=== PATIENT | female | born 1970 | race Caucasian/White ===

== ENCOUNTER 2017-05-22 10:30 | Day surgery (SDC) | payer OTHER ==
[~2017-05-22] VITALS: Ht 157.5 cm; Wt 58.3 kg
[~2017-05-22 10:30] MED LIST: ALPR-475 PO; HYDR1TAB12 PO; LORA10TA75 PO; MAGN100T PO
[2017-05-22] MEDS ORDERED: LACTATED RINGERS 1,000 ML IV SCH (11:00)
[2017-05-22 11:08] LABS: HCG UR OBC PASS
[2017-05-22 11:25] VITALS: BP 110/72
[2017-05-22] MEDS ORDERED: MEPERIDINE/PF 50 MG/ML ONE (11:45)
[2017-05-22] MEDS ORDERED: FENTANYL PF 100 MCG/2ML ONE (11:46)
[2017-05-22] MEDS ORDERED: MIDAZOLAM 1 MG/ML, 2ML ONE (11:46)
[2017-05-22] MEDS ORDERED: SILVER NITRATE STICK TP ONE (12:25)
[2017-05-22] MEDS ORDERED: BUPIVACAINE/PF 0.25% ONE (12:25)
[2017-05-22] MEDS ORDERED: EPINEPHRINE 1 MG/ML, 1ML ONE (12:26)
[2017-05-22] MEDS ORDERED: GLYCOPYRROLATE 0.2MG/1ML, 5ML ONE (12:45)
[2017-05-22] MEDS ORDERED: ONDANSETRON 2MG/ML, 2ML ONE (12:45)
[2017-05-22] MEDS ORDERED: PROPOFOL 10 MG/ML, 20ML ONE (12:45)
[2017-05-22] MEDS ORDERED: ONDANSETRON 2MG/ML, 2ML IVPush PRN (13:00)
[2017-05-22] MEDS ORDERED: HYDROcodone/APAP 7.5-325MG/15ML UDC PO PRN (13:00)
[2017-05-22] MEDS ORDERED: OXYcodone 5 MG/5 ML ORAL.SOL UDC PO PRN (13:00)
[2017-05-22] MEDS ORDERED: ACETAMINOPHEN 325 MG TABLET PO PRN (13:00)
[2017-05-22] MEDS ORDERED: HYDROmorphone 1 MG/ML, 1ML IV PRN (13:00)
[2017-05-22] MEDS ORDERED: FENTANYL PF 100 MCG/2ML IV PRN (13:00)
[2017-05-22] MEDS ORDERED: KETOROLAC 30 MG/1 ML ONE (13:46)
[2017-05-22] MEDS ORDERED: OXYcodone 5 MG/5 ML ORAL.SOL UDC ONE (13:46)
[2017-05-22] MEDS ORDERED: ACETAMINOPHEN 650 MG/20.3 ML UDC ONE (13:46)
[2017-05-22] MEDS ORDERED: KETOROLAC 30 MG/1 ML IV PRN (14:00)
== END 2017-05-22 15:20 | disposition home or self-care (01) ==
LOC: OUT 10:30
PROVIDERS: ATTEND Obstetrics & Gynecology
DX: N93.8 Other specified abnormal uterine and vaginal bleeding (principal); N84.0 Polyp of corpus uteri; Z90.49 Acquired absence of other specified parts of digestive tract; Z98.890 Other specified postprocedural states; Z85.42 Personal history of malignant neoplasm of other parts of uterus
CPT/HCPCS: 58563; 81025; 88305; J0171; J1885; J2175; J2250; J2405; J2704; J3010; J3490; J7120